=== PATIENT | male | born 1990 | race African-American/Black ===

== ENCOUNTER → 2021-03-18 14:13 | Outpatient (CLI) | payer OTHER, MEDICAID, SELFPAY ==
[2021-03-18 15:24] LABS: Add Manual Diff / Slide Review NO; Basophils Absolute Auto 0 /uL (0-100); Basophils Percent Auto 0.7 % (0-2); Eosinophils Absolute Auto 0 /uL (0-450); Eosinophils Percent Auto 0.9 % (2-4); Hematocrit 41.5 % (41-53); Hemoglobin 13.8 g/dL (13.5-17.5); Lymphocytes Absolute Auto 1400 /uL (1100-4500); Lymphocytes Percent Auto 33.2 % (25-40); Mean Corpuscular HGB Conc 33.3 % (30-36); Mean Corpuscular Hemoglobin 29.5 PG (26-34); Mean Corpuscular Volume 88.6 fL (80-100); Monocytes Absolute Auto 300 /uL (0-900); Monocytes Percent Auto 6.3 % (3-14); Neutrophils Absolute Auto 2500 /uL (1500-7000); Neutrophils Percent Auto 58.9 % (50-75); Platelet Count 199 X10^3/uL (150-400); Red Blood Cell Count 4.69 X10^6/uL (4.5-5.9); Red Cell Distribution Width 13.7 % (11.6-14.8); White Blood Cell Count 4.3 X10^3/uL (4.5-11.0)
[2021-03-18 15:48] LABS: Alanine Aminotransferase 37 IU/L (<50); Albumin 4.4 g/dL (3.5-5.0); Albumin Globulin Ratio 1.4 (1.0-2.8); Alkaline Phosphatase 79 U/L (38-126); Aspartate Aminotransferase 39 IU/L (17-59); BUN Creatinine Ratio 12.9 (6-22); Bilirubin Total 0.5 mg/dL (0.2-1.3); Blood Urea Nitrogen 18 mg/dL (9-20); Calcium 9.1 mg/dL (8.4-10.2); Carbon Dioxide 36 mmol/L (22-32); Chloride 103 mmol/L (98-107); Cholesterol 231 mg/dL (140-199); Estimated Glomerular Filt Rate > 60.0 mL/min (>60); Globulin 3.2 g/dL (1.7-4.1); Glucose 97 mg/dL (70-100); HDL Cholesterol 56 mg/dL (40-60); HEMOLYSIS < 15 (0-50); LDL Cholesterol Calculated 159 mg/dL (<100); Potassium 3.4 mmol/L (3.4-5.1); Sodium 141 mmol/L (137-145); Total Protein 7.6 g/dL (6.3-8.2); Triglycerides 80 mg/dL (35-150)
[2021-03-18 16:18] LABS: TSH w/ Reflex to FT4 0.87 uIU/mL (0.47-4.68)
[2021-03-18 16:38] LABS: Creatinine Urine Random 266.6 mg/dL
[2021-03-18 16:46] LABS: Microalbumi Creatinin Ratio Ur 62.2 ug/mg CR (<30); Microalbumin Urine Random 16.6 mg/dL (0-1.6)
== END ==
PROVIDERS: PCP Family Medicine; Referring Provider Family Medicine; Visit Provider Family Medicine
DX: I10 Essential (primary) hypertension (principal)
CPT/HCPCS: 36415; 80053; 80061; 82043; 82570; 84443; 85025

== ENCOUNTER → 2021-05-17 12:00 | Outpatient (CLI) | payer OTHER, MEDICAID, SELFPAY ==
--- NOTE | 2021-05-17 12:02 | DI.US.S_ITS ---
PROCEDURE: US RENAL COMPLETE INDICATIONS: HTN TECHNIQUE: Real-time scanning was performed of the kidneys and bladder, with image documentation. COMPARISON: None. FINDINGS: Kidneys: Kidneys are normal in size. Right kidney measures 10.1 cm long; left kidney measures 10.1 cm long. Right renal cortical thickness is 1.5 cm; left renal cortical thickness is 1.6 cm. Renal cortical echotexture is normal. No hydronephrosis or nephrolithiasis. No suspicious solid mass lesions. Bladder: Pre-void bladder volume is 231 mL. Post-void residual is 0 mL. Pre-void images demonstrate no intraluminal masses or stones. On pre-void images, neither ureteral jets are noted with color Doppler interrogation. (Of note, ureteral jets may not be detectable in up to 25% of cases due to insufficient differences in specific gravity between ureteral and bladder urine). Miscellaneous: No free pelvic fluid. IMPRESSION: Normal appearance of the kidneys bilaterally. Dictated by: Kei Gaona [facility] Interpreted: Brian Boland MD on 05/17/2021 at 14:32 Transcribed by: PONCHO on 05/17/2021 at 14:33 Approved by: Brian Boland M.D. on 05/17/2021 at 17:00
== END ==
PROVIDERS: PCP Family Medicine; Referring Provider Family Medicine; Visit Provider Family Medicine
DX: I10 Essential (primary) hypertension (principal)
CPT/HCPCS: 76770

== ENCOUNTER → 2021-05-28 15:51 | Outpatient (CLI) | payer OTHER, MEDICAID, SELFPAY ==
--- NOTE | 2021-05-28 15:52 | DI.ECHO.S_ITS ---
[place] [facility]---------+ [facility] +---------+ : : [address] : [address] : : : : [id number] : : : : Phone: [phone]---------+ Echocardiogram Report + + :Name: TYRON BONE Study Date: 05/28/2021 Height: 71 in : :[facility] ReadingLocation: Weight: 185 lb : : Gender: Male BSA: 2.0 m2 : :: 1990 Age: 30 yrs BP: 188/105 mmHg: :Reason For Study: RESISTANT HYPETENSION : :Ordering Physician: KENNEDI, : :NOEL Performed By: Adrienne Unger : :Referring: NOEL KOLB : + + Interpretation Summary 1) Normal left ventricular thickness, size, wall motion, and systolic function (EF 55-60%). 2) Upper normal right ventricular size with normal function. 3) No significant valvular abnormalities. 4) Significant hypertension present during the study (BP 188/105mmHg). 5) Compared to the Echo done 10/07/2016, no significant change. Procedure: A two-dimensional transthoracic echocardiogram with color flow and Doppler was performed. The study quality was technically adequate. Comparison is made with the echocardiogram of 10/07/2016. The patient was in sinus rhythm with heart rates between 70-80 bpm during the exam. Left Ventricle: The left ventricle is normal in size. There is mild concentric left ventricular hypertrophy. The ejection fraction is estimated to be 55-60%. Left ventricular systolic function appears normal without focal wall motion abnormalities. Diastolic parameters suggest a relaxation abnormality of the left ventricle, consistent with probable normal filling pressures. Right Ventricle: The right ventricle is at the upper limits of normal in size. The right ventricular systolic function is normal. Atria: The left atrium is moderately dilated. Right atrial size is normal. There is no Doppler evidence for an interatrial shunt. Mitral Valve: The mitral valve is normal in structure and function. There is trace mitral regurgitation. Aortic Valve: The aortic valve is trileaflet. The aortic valve opens well. There is no aortic valve stenosis. No aortic regurgitation is present. Tricuspid Valve: The tricuspid valve is normal in structure and function. No tricuspid regurgitation. Pulmonary artery pressures cannot be estimated because of the lack of a measurable TR jet velocity but the IVC suggests a CVP of around 3 mmHg. Pulmonic Valve: The pulmonic valve leaflets are thin and pliable; valve motion is normal. There is a trace or physiologic amount of pulmonic regurgitation. Great Vessels: The aortic root is normal size. The dimensions of the ascending aorta are normal. The IVC is of normal diameter and collapses greater than 50% with a sniff. This suggests a low right atrial pressure of 3 mm Hg. Pericardium/ Pleura There is no pericardial effusion. There is no pleural effusion. MMode/2D Measurements & Calculations LVIDd: 4.9 cm LVOT diam: 2.2 cm LVIDs: 3.4 cm Ao root diam: 3.2 cm FS: 31.2 % asc Aorta Diam: 3.1 cm IVSd: 1.2 cm Ao Arch Diam (Prox Trans): 2.8 cm LVPWd: 1.3 cm LV brown. diameter/BSA (cm/m^2): 2.4 LV sys. diameter/BSA (cm/m^2): 1.7 LA A2 area: 21.7 cm2 RA long axis: 5.1 cm LA A4 area: 22.0 cm2 RA area: 15.5 cm2 LA length (vol): 5.4 cm RA vol: 40.1 ml LA vol: 75.0 ml RA : 19.7 ml/m2 LA vol index: 36.8 ml/m2 IVC diam: 1.7 cm RVD1 (basal): 4.0 cm TAPSE: 2.6 cm Doppler Measurements & Calculations Ao V2 max: 126.2 cm/sec LVOT Max David: 103.8 cm/sec Ao V2 mean: 84.4 cm/sec LV V1 max P.3 mmHg Ao max P.4 mmHg LV V1 VTI: 18.6 cm Ao mean P.2 mmHg KEENAN(I,D): 3.0 cm2 Ao V2 VTI: 23.8 cm KEENAN(V,D): 3.2 cm2 sev ratio: 0.78 KEENAN indexed to BSA (cm^2/m^2): 1.5 MV E max david: 88.9 cm/sec PA V2 max: 98.4 cm/sec MV A max david: 96.5 cm/sec PA V2 mean: 74.0 cm/sec MV E/A: 0.92 PA mean P.4 mmHg Med Peak E' David: 6.7 cm/sec PA pr(Accel): 12.2 mmHg E/E' med: 13.2 Lat Peak E' David: 8.1 cm/sec E/E' lat: 10.9 E/e' average: 12.1 MV dec time: 0.20 sec SV(LVOT): 71.4 ml Reading Physician:05:50 PM
== END ==
PROVIDERS: PCP Family Medicine; Referring Provider Family Medicine; Visit Provider Family Medicine
DX: I10 Essential (primary) hypertension (principal)
CPT/HCPCS: 93306

== ENCOUNTER 2023-08-14 16:26 | Emergency (ER) | payer OTHER, MEDICAID, SELFPAY ==
[2023-08-14] VITALS (32 sets, daily range): BP systolic 124–262; BP diastolic 64–175; PULSE 73–88; RESP 13–25; TEMP 36.9; O2SAT 96–100; BMI 28.7
--- NOTE | 2023-08-14 17:08 | DI.RAD.S_ITS ---
PROCEDURE: XR CHEST 1V INDICATIONS: chest pain TECHNIQUE: One view of the chest was acquired. COMPARISON: None. FINDINGS: Surgical changes and devices: None. Lungs and pleura: Lungs are clear. No pleural effusions or pneumothorax. Mediastinum: Mediastinal contours appear normal. Heart size is enlarged. Bones and chest wall: No suspicious bony lesions. Overlying soft tissues appear unremarkable. IMPRESSION: No acute pulmonary process. Dictated by: Valentina Jacobsen M.D. on 08/14/2023 at 17:21 Approved by: Valentina Jacobsen M.D. on 08/14/2023 at 17:21
--- NOTE | 2023-08-14 17:23 | DI.CT.S_ITS ---
PROCEDURE: CT HEAD/BRAIN WO CON INDICATIONS: Blurry vision/hypertensive urgency TECHNIQUE: Noncontrast 4.5 mm thick angled axial sections acquired from the foramen magnum to the vertex, with coronal and sagittal reformats. For radiation dose reduction, the following was used: automated exposure control, adjustment of mA and/or kV according to patient size. COMPARISON: None. FINDINGS: Image quality: Diagnostic. CSF spaces: Basal cisterns are patent. No extra-axial fluid collections. Ventricles are normal in size and shape. Brain: No midline shift. No intracranial masses or hemorrhage. Payne-white matter interface is normal. Skull and face: Calvarium and visualized facial bones are intact, without suspicious lesions. Sinuses: Visualized sinuses and mastoids are clear. IMPRESSION: No acute intracranial pathology. Dictated by: Rehana Bourgeois M.D. on 08/14/2023 at 18:08 Approved by: Rehana Bourgeois M.D. on 08/14/2023 at 18:09
[2023-08-14 17:26] LABS: Alanine Aminotransferase 26 IU/L (<50); Albumin 4.2 g/dL (3.5-5.0); Albumin Globulin Ratio 1.3 (1.0-2.8); Alkaline Phosphatase 83 U/L (38-126); Aspartate Aminotransferase 32 IU/L (17-59); Calcium 8.6 mg/dL (8.4-10.2); Carbon Dioxide 24 mmol/L (22-32); Chloride 99 mmol/L (98-107); Creatine Kinase 435 U/L (55-170); Globulin 3.3 g/dL (1.7-4.1); Glucose 92 mg/dL (70-100); HEMOLYSIS < 15 (0-50); Lipase 167 U/L (23-300); Magnesium 2.5 mg/dL (1.6-2.3); Potassium 3.9 mmol/L (3.4-5.1); Sodium 136 mmol/L (137-145); Total Protein 7.5 g/dL (6.3-8.2)
--- NOTE | 2023-08-14 17:33 | ED.GENADULT ---
HPI - General Adult <Kyle Sprague MD - Last Filed: 09/02/23 08:04> General Chief complaint: Hypertension Stated complaint: High BP, Blurred vision right eye Time Seen by Provider: 08/14/23 17:13 Source: patient Mode of arrival: Ambulatory History of Present Illness HPI narrative: Patient here with mother. Complains of blurry vision on the right eye. Ongoing since 1:00 p.m. today. He awoke at 12 noon today define blurry vision in the right. Has had blurry vision through the past couple of days. No headache no chest pain no palpitations no numbness tingling weakness no slurred speech or facial droop. Patient has longstanding history of hypertension. Has been off and on blood pressure medication in the past 2 years. He was on amlodipine and losartan with primary care 2 years ago. He just restarted metoprolol, monotherapy, 25 mg daily. He took this at noon today. 25 mg. He states his blood pressure has been in the 200s in the past 1 year. This is not new. Related Data Previous Rx's Medication Instructions Recorded amlodipine 5 mg tablet 5 mg PO DAILY #90 tabs 07/30/21 losartan 100 1 tab PO DAILY #90 tabs 07/30/21 mg-hydrochlorothiazide 25 mg tablet Allergies Allergy/AdvReac Type Severity Reaction Status Date / Time No Known Drug Allergies Allergy Verified 03/20/21 14:08 Review of Systems <Kyle Sprague MD - Last Filed: 09/02/23 08:04> Review of Systems Narrative: GENERAL: negative chills, fatigue, malaise, fever, sweats. HEENT: negative sinus pain, ear pain, sore throat positive blurry vision RESPIRATORY: negative dyspnea, cough CARDIOVASCULAR: negative chest pain, palpitations GASTROINTESTINAL: negative nausea, vomiting, abdominal pain : negative dysuria, frequency, hematuria MUSCULOSKELETAL: negative muscle or bony pain SKIN: negative rash, skin lesions NEUROLOGIC: negative weakness, numbness ROS Unobtainable: All systems reviewed & are unremarkable except as noted in HPI and below Patient History <Kyle Sprague MD - Last Filed: 09/02/23 08:04> Medical History Hypertension (~2020) Social History Smoking Status: Never smoker Smoking Status: Never smoker alcohol intake frequency: 0-2 drinks per day Substance Use Type: does not use Exam <Kyle Sprague MD - Last Filed: 09/02/23 08:04> Narrative Exam Narrative: GENERAL: in no distress, not toxic not dyspneic HEAD: Normocephalic. EYES: Pupils equal round, EOMI, no papilledema photophobia ENT: Mucous membranes moist. NECK: Trachea midline. CARDIOVASCULAR: Regular rate and rhythm RESPIRATORY: Clear to auscultation. Breath sounds equal bilaterally. No wheezes, rales, or rhonchi. GASTROINTESTINAL: Abdomen soft, non-tender EXTREMITIES: No gross deformities. BACK: No flank tenderness. NEURO: AOx4. Clear speech no facial droop light touch intact bilateral face and hands. Strong equal whipper SKIN: Warm and dry PSYCH: Not anxious, is cooperative Initial Vital Signs Initial Vital Signs: Vital Signs Temperature 98.4 F 08/14/23 16:29 Pulse Rate 85 08/14/23 16:29 Respiratory Rate 20 08/14/23 16:29 Blood Pressure 262/169 H 08/14/23 16:29 Pulse Oximetry 100 08/14/23 16:29 Oxygen Delivery Method Room Air 08/14/23 16:29 <Aisha Alvarado MD - Last Filed: 08/15/23 04:17> Initial Vital Signs Initial Vital Signs: Vital Signs Temperature 98.4 F 08/14/23 16:29 Pulse Rate 85 08/14/23 16:29 Respiratory Rate 20 08/14/23 16:29 Blood Pressure 262/169 H 08/14/23 16:29 Pulse Oximetry 100 08/14/23 16:29 Oxygen Delivery Method Room Air 08/14/23 16:29 Course <Kyle Sprague MD - Last Filed: 09/02/23 08:04> Orders Ordered: Discontinued Medications Aspirin (Aspirin 81 Mg Chew Tab) 324 mg PO NOW ONE Stop: 08/14/23 17:09 Last Admin: 08/14/23 17:25 Dose: Not Given Documented By: LOS Nicardipine HCl 25 mg/ Sodium (Chloride) 250 mls @ 50 mls/hr IV TITRATE MARTA; Protocol Last Titration: 08/15/23 01:02 Dose: Infused Documented By: Titration: 08/14/23 23:36 Dose: 2.5 mg/hr, 25 mls/hr Documented By: Titration: 08/14/23 22:47 Dose: 0 mg/hr, 0 mls/hr Documented By: Titration: 08/14/23 21:53 Dose: 2.5 mg/hr, 25 mls/hr Documented By: Titration: 08/14/23 20:25 Dose: 0 mg/hr, 0 mls/hr Documented By: Titration: 08/14/23 20:14 Dose: 5 mg/hr, 50 mls/hr Documented By: Titration: 08/14/23 19:00 Dose: 7.5 mg/hr, 75 mls/hr Documented By: Admin: 08/14/23 18:45 Dose: 5 mg/hr, 50 mls/hr Documented By: LOS Metoprolol Tartrate (Metoprolol Ir 25 Mg Tablet) 50 mg PO NOW ONE Stop: 08/14/23 17:34 Last Admin: 08/14/23 17:40 Dose: 50 mg Documented By: LOS Vital Signs Vital signs: Vital Signs - 8 hr 08/14/23 20:15 08/14/23 20:15 08/14/23 20:30 Pulse Rate 80 80 Respiratory Rate 19 19 Blood Pressure 124/64 Pulse Oximetry 100 100 08/14/23 20:30 08/14/23 20:44 08/14/23 20:45 Pulse Rate 81 Respiratory Rate 18 Blood Pressure 138/76 150/85 H Pulse Oximetry 100 08/14/23 20:45 08/14/23 21:00 08/14/23 21:00 Pulse Rate 82 82 Respiratory Rate 17 18 Blood Pressure 155/89 H Pulse Oximetry 100 100 08/14/23 21:15 08/14/23 21:15 08/14/23 21:30 Pulse Rate 82 Respiratory Rate 17 Blood Pressure 159/91 H 164/95 H Pulse Oximetry 100 08/14/23 21:30 08/14/23 21:51 08/14/23 21:51 Pulse Rate 83 84 Respiratory Rate 21 Blood Pressure 177/111 H Pulse Oximetry 100 100 08/14/23 22:00 08/14/23 22:00 08/14/23 22:15 Pulse Rate 85 Respiratory Rate Blood Pressure 166/104 H 157/95 H Pulse Oximetry 100 08/14/23 22:15 08/14/23 22:30 08/14/23 22:30 Pulse Rate 84 85 Respiratory Rate Blood Pressure 157/92 H Pulse Oximetry 100 100 08/14/23 22:44 08/14/23 22:45 08/14/23 22:45 Pulse Rate 87 86 Respiratory Rate Blood Pressure 149/87 H Pulse Oximetry 100 100 08/14/23 23:00 08/14/23 23:00 08/14/23 23:15 Pulse Rate 85 Respiratory Rate Blood Pressure 161/90 H 161/92 H Pulse Oximetry 100 08/14/23 23:15 08/14/23 23:30 08/14/23 23:30 Pulse Rate 83 86 Respiratory Rate Blood Pressure 175/106 H Pulse Oximetry 100 99 08/14/23 23:45 08/14/23 23:45 08/15/23 00:00 Pulse Rate 88 Respiratory Rate Blood Pressure 169/103 H 160/98 H Pulse Oximetry 99 08/15/23 00:00 08/15/23 00:15 08/15/23 00:15 Pulse Rate 87 87 Respiratory Rate Blood Pressure 161/95 H Pulse Oximetry 99 99 08/15/23 00:30 08/15/23 00:30 08/15/23 00:45 Pulse Rate 88 Respiratory Rate Blood Pressure 163/93 H 163/93 H Pulse Oximetry 99 08/15/23 00:45 Pulse Rate 90 Respiratory Rate Blood Pressure Pulse Oximetry 99 <Aisha Alvarado MD - Last Filed: 08/15/23 04:17> Orders Ordered: Discontinued Medications Aspirin (Aspirin 81 Mg Chew Tab) 324 mg PO NOW ONE Stop: 08/14/23 17:09 Last Admin: 08/14/23 17:25 Dose: Not Given Documented By: LOS Nicardipine HCl 25 mg/ Sodium (Chloride) 250 mls @ 50 mls/hr IV TITRATE MARTA; Protocol Last Titration: 08/15/23 01:02 Dose: Infused Documented By: Titration: 08/14/23 23:36 Dose: 2.5 mg/hr, 25 mls/hr Documented By: Titration: 08/14/23 22:47 Dose: 0 mg/hr, 0 mls/hr Documented By: Titration: 08/14/23 21:53 Dose: 2.5 mg/hr, 25 mls/hr Documented By: Titration: 08/14/23 20:25 Dose: 0 mg/hr, 0 mls/hr Documented By: Titration: 08/14/23 20:14 Dose: 5 mg/hr, 50 mls/hr Documented By: Titration: 08/14/23 19:00 Dose: 7.5 mg/hr, 75 mls/hr Documented By: Admin: 08/14/23 18:45 Dose: 5 mg/hr, 50 mls/hr Documented By: LOS Metoprolol Tartrate (Metoprolol Ir 25 Mg Tablet) 50 mg PO NOW ONE Stop: 08/14/23 17:34 Last Admin: 08/14/23 17:40 Dose: 50 mg Documented By: LOS Vital Signs Vital signs: Vital Signs - 8 hr 08/14/23 20:15 08/14/23 20:15 08/14/23 20:30 Pulse Rate 80 80 Respiratory Rate 19 19 Blood Pressure 124/64 Pulse Oximetry 100 100 08/14/23 20:30 08/14/23 20:44 08/14/23 20:45 Pulse Rate 81 Respiratory Rate 18 Blood Pressure 138/76 150/85 H Pulse Oximetry 100 08/14/23 20:45 08/14/23 21:00 08/14/23 21:00 Pulse Rate 82 82 Respiratory Rate 17 18 Blood Pressure 155/89 H Pulse Oximetry 100 100 08/14/23 21:15 08/14/23 21:15 08/14/23 21:30 Pulse Rate 82 Respiratory Rate 17 Blood Pressure 159/91 H 164/95 H Pulse Oximetry 100 08/14/23 21:30 08/14/23 21:51 08/14/23 21:51 Pulse Rate 83 84 Respiratory Rate 21 Blood Pressure 177/111 H Pulse Oximetry 100 100 08/14/23 22:00 08/14/23 22:00 08/14/23 22:15 Pulse Rate 85 Respiratory Rate Blood Pressure 166/104 H 157/95 H Pulse Oximetry 100 08/14/23 22:15 08/14/23 22:30 08/14/23 22:30 Pulse Rate 84 85 Respiratory Rate Blood Pressure 157/92 H Pulse Oximetry 100 100 08/14/23 22:44 08/14/23 22:45 08/14/23 22:45 Pulse Rate 87 86 Respiratory Rate Blood Pressure 149/87 H Pulse Oximetry 100 100 08/14/23 23:00 08/14/23 23:00 08/14/23 23:15 Pulse Rate 85 Respiratory Rate Blood Pressure 161/90 H 161/92 H Pulse Oximetry 100 08/14/23 23:15 08/14/23 23:30 08/14/23 23:30 Pulse Rate 83 86 Respiratory Rate Blood Pressure 175/106 H Pulse Oximetry 100 99 08/14/23 23:45 08/14/23 23:45 08/15/23 00:00 Pulse Rate 88 Respiratory Rate Blood Pressure 169/103 H 160/98 H Pulse Oximetry 99 08/15/23 00:00 08/15/23 00:15 08/15/23 00:15 Pulse Rate 87 87 Respiratory Rate Blood Pressure 161/95 H Pulse Oximetry 99 99 08/15/23 00:30 08/15/23 00:30 08/15/23 00:45 Pulse Rate 88 Respiratory Rate Blood Pressure 163/93 H 163/93 H Pulse Oximetry 99 08/15/23 00:45 Pulse Rate 90 Respiratory Rate Blood Pressure Pulse Oximetry 99 Medical Decision Making <Kyle Sprague MD - Last Filed: 09/02/23 08:04> Lab Data 08/14/23 16:55 08/14/23 16:55 Labs: Lab Results 08/14/23 08/14/23 Range/Units 16:55 20:20 WBC 7.6 (4.5-11.0) X10^3/uL RBC 2.96 L (4.5-5.9) X10^6/uL Hgb 9.3 L (13.5-17.5) g/dL Hct 26.7 L (41-53) % MCV 90.4 (80-100) fL MCH 31.3 (26-34) PG MCHC 34.6 (30-36) % RDW 15.8 H (11.6-14.8) % Plt Count 72 L (150-400) X10^3/uL Neut % (Auto) 76.0 H (50-75) % Lymph % (Auto) 12.6 L (25-40) % [place] % (Auto) 7.3 (3-14) % Eos % (Auto) 3.2 (2-4) % Baso % (Auto) 0.9 (0-2) % Neut # (Auto) 5800 (7578-7185) /uL Lymph # (Auto) 1000 L (5779-8198) /uL [place] # (Auto) 600 (0-900) /uL Eos # (Auto) 200 (0-450) /uL Baso # (Auto) 100 (0-100) /uL RBC Morphology See below Hypochromasia 1+ H Anisocytosis 2+ H Microcytosis 1+ H Macrocytosis 1+ H Target Cells 1+ H Ovalocytes 1+ H Rouleaux 1+ H Schistocytes 1+ H PT 12.3 (9.4-12.5) SECONDS INR 1.1 (0.9-1.3) APTT 40 H (25.1-36.5) SECONDS Sodium 136 L (137-145) mmol/L Potassium 3.9 (3.4-5.1) mmol/L Chloride 99 (98-107) mmol/L Carbon Dioxide 24 (22-32) mmol/L BUN 110 H* (9-20) mg/dL Creatinine 11.14 H* (0.66-1.25) mg/dL Estimated GFR 6 L (>60) mL/min BUN/Creatinine Ratio 9.9 (6-22) Glucose 92 (70-100) mg/dL Calcium 8.6 (8.4-10.2) mg/dL Magnesium 2.5 H (1.6-2.3) mg/dL Total Bilirubin 1.0 (0.2-1.3) mg/dL AST 32 (17-59) IU/L ALT 26 (<50) IU/L Alkaline Phosphatase 83 (38-126) U/L Total Creatine Kinase 435 H (55-170) U/L Troponin I 0.066 H 0.075 H (0.01-0.034) ng/mL Total Protein 7.5 (6.3-8.2) g/dL Albumin 4.2 (3.5-5.0) g/dL Globulin 3.3 (1.7-4.1) g/dL Albumin/Globulin Ratio 1.3 (1.0-2.8) Lipase 167 (23-300) U/L Imaging Data Chest x-ray: Radiologist's Impression: [address] [address] XRay Report Signed Patient: Roge Ely MR#: [id number] : 1990 Acct:[id number] Age/Sex: 32 / M Date of Service: 08/14/23 Loc: ED Accession Number: [id number] Procedure: XR chest 1V Ordering Provider: Kyle Sprague MD PROCEDURE: XR CHEST 1V INDICATIONS: chest pain TECHNIQUE: One view of the chest was acquired. COMPARISON: None. FINDINGS: Surgical changes and devices: None. Lungs and pleura: Lungs are clear. No pleural effusions or pneumothorax. Mediastinum: Mediastinal contours appear normal. Heart size is enlarged. Bones and chest wall: No suspicious bony lesions. Overlying soft tissues appear unremarkable. IMPRESSION: No acute pulmonary process. Dictated by: Valentina Jacobsen M.D. on 08/14/2023 at 17:21 Approved by: Valentina Jacobsen M.D. on 08/14/2023 at 17:21 [facility] Narrative Medical decision making narrative: Patient here with mother. Complains of blurry vision on the right eye. Ongoing since 1:00 p.m. today. He awoke at 12 noon today define blurry vision in the right. Has had blurry vision through the past couple of days. No headache no chest pain no palpitations no numbness tingling weakness no slurred speech or facial droop. Patient has longstanding history of hypertension. Has been off and on blood pressure medication in the past 2 years. He was on amlodipine and losartan with primary care 2 years ago. He just restarted metoprolol, monotherapy, 25 mg daily. He took this at noon today. 25 mg. He states his blood pressure has been in the 200s in the past 1 year. This is not new. After history and exam CBC CMP EKG CT head metoprolol MDM CC: High blood pressure/blurry vision Complicating co-morbidities: Hypertension Data collected from: Patient and mother Medical records reviewed: Office records from July 30, 2021, echocardiogram from 2020 Differential considered: Includes but not limited to hypertensive urgency/emergency Exam documented above, pertinent findings include: Fast exam is negative Lab Test results independently reviewed as above. Pertinent findings: WBC 7.6 hemoglobin 9.3 sodium 136 potassium 3.9 BUN 110 creatinine 11.14 GFR 6 Troponin 0.066 likely due to renal clearance. Patient has no chest pain. Independently reviewed EKG Imaging studies independently reviewed: Chest x-ray no acute finding, CT head Consultations: 5:[address] Blas, hospitalist, would slowly lower patient's blood pressure by 25% or 30%. Based on map. Patient can receive at this time 50 mg metoprolol tartrate. Observe for 1 or 2 hours to see response. Treatments: Re-evaluations: Discussion: Diagnosis: Hypertensive emergency August 14, 2023 at 6:00 p.m.. Brennick: Sign out to Dr Alvarado, patient will likely need to be transferred out given hypertensive emergency with renal function noted. <Aisha Alvarado MD - Last Filed: 08/15/23 04:17> Lab Data Labs: Lab Results 08/14/23 08/14/23 Range/Units 16:55 20:20 WBC 7.6 (4.5-11.0) X10^3/uL RBC 2.96 L (4.5-5.9) X10^6/uL Hgb 9.3 L (13.5-17.5) g/dL Hct 26.7 L (41-53) % MCV 90.4 (80-100) fL MCH 31.3 (26-34) PG MCHC 34.6 (30-36) % RDW 15.8 H (11.6-14.8) % Plt Count 72 L (150-400) X10^3/uL Neut % (Auto) 76.0 H (50-75) % Lymph % (Auto) 12.6 L (25-40) % [place] % (Auto) 7.3 (3-14) % Eos % (Auto) 3.2 (2-4) % Baso % (Auto) 0.9 (0-2) % Neut # (Auto) 5800 (5373-3643) /uL Lymph # (Auto) 1000 L (9697-6663) /uL [place] # (Auto) 600 (0-900) /uL Eos # (Auto) 200 (0-450) /uL Baso # (Auto) 100 (0-100) /uL RBC Morphology See below Hypochromasia 1+ H Anisocytosis 2+ H Microcytosis 1+ H Macrocytosis 1+ H Target Cells 1+ H Ovalocytes 1+ H Rouleaux 1+ H Schistocytes 1+ H PT 12.3 (9.4-12.5) SECONDS INR 1.1 (0.9-1.3) APTT 40 H (25.1-36.5) SECONDS Sodium 136 L (137-145) mmol/L Potassium 3.9 (3.4-5.1) mmol/L Chloride 99 (98-107) mmol/L Carbon Dioxide 24 (22-32) mmol/L BUN 110 H* (9-20) mg/dL Creatinine 11.14 H* (0.66-1.25) mg/dL Estimated GFR 6 L (>60) mL/min BUN/Creatinine Ratio 9.9 (6-22) Glucose 92 (70-100) mg/dL Calcium 8.6 (8.4-10.2) mg/dL Magnesium 2.5 H (1.6-2.3) mg/dL Total Bilirubin 1.0 (0.2-1.3) mg/dL AST 32 (17-59) IU/L ALT 26 (<50) IU/L Alkaline Phosphatase 83 (38-126) U/L Total Creatine Kinase 435 H (55-170) U/L Troponin I 0.066 H 0.075 H (0.01-0.034) ng/mL Total Protein 7.5 (6.3-8.2) g/dL Albumin 4.2 (3.5-5.0) g/dL Globulin 3.3 (1.7-4.1) g/dL Albumin/Globulin Ratio 1.3 (1.0-2.8) Lipase 167 (23-300) U/L Imaging Data CT scan - head: Radiologist's Impression: PROCEDURE: CT HEAD/BRAIN WO CON INDICATIONS: Blurry vision/hypertensive urgency TECHNIQUE: Noncontrast 4.5 mm thick angled axial sections acquired from the foramen magnum to the vertex, with coronal and sagittal reformats. For radiation dose reduction, the following was used: automated exposure control, adjustment of mA and/or kV according to patient size. COMPARISON: None. FINDINGS: Image quality: Diagnostic. CSF spaces: Basal cisterns are patent. No extra-axial fluid collections. Ventricles are normal in size and shape. Brain: No midline shift. No intracranial masses or hemorrhage. Payne-white matter interface is normal. Skull and face: Calvarium and visualized facial bones are intact, without suspicious lesions. Sinuses: Visualized sinuses and mastoids are clear. IMPRESSION: No acute intracranial pathology. Dictated by: Rehana Bourgeois M.D. on 08/14/2023 at 18:08 [facility] Narrative Medical decision making narrative: Patient here with mother. Complains of blurry vision on the right eye. Ongoing since 1:00 p.m. today. He awoke at 12 noon today define blurry vision in the right. Has had blurry vision through the past couple of days. No headache no chest pain no palpitations no numbness tingling weakness no slurred speech or facial droop. Patient has longstanding history of hypertension. Has been off and on blood pressure medication in the past 2 years. He was on amlodipine and losartan with primary care 2 years ago. He just restarted metoprolol, monotherapy, 25 mg daily. He took this at noon today. 25 mg. He states his blood pressure has been in the 200s in the past 1 year. This is not new. After history and exam CBC CMP EKG CT head metoprolol [facility] CC: High blood pressure/blurry vision Complicating co-morbidities: Hypertension Data collected from: Patient and mother Medical records reviewed: Office records from July 30, 2021, echocardiogram from 2020 Differential considered: Includes but not limited to hypertensive urgency/emergency, stroke, ACS Exam documented above, pertinent findings include: Fast exam is negative Lab Test results independently reviewed as above. Pertinent findings: CBC with significant anemia at 9.3 and 26.7 and low platelets at 72. White count is normal. Concern for bone marrow dysfunction Chemistries are notable for creatinine at 11.14. Sodium 136, potassium 3.9, chloride 99, carbon dioxide 24. No liver abnormalities. Magnesium minimally elevated at 2.5 Independently reviewed EKG: EKG shows left ventricular hypertrophy J-point elevation, questioned lateral ischemia. QTC is prolonged at 478 Imaging studies independently reviewed: Chest x-ray no acute finding CT head shows no acute findings Consultations: 5:[address] Blas, hospitalist, would slowly lower patient's blood pressure by 25% or 30%. Based on map. Patient can receive at this time 50 mg metoprolol tartrate. Observe for 1 or 2 hours to see response. Diagnosis: Hypertensive emergency August 14, 2023 at 6:00 p.m.. Celestine: Sign out to Dr Alvarado, patient will likely need to be transferred out given hypertensive emergency with renal function noted. 6:15pm Dr Alvarado. Care is assumed, patient is independently evaluated, imaging studies and lab tests are reviewed. Findings and concerns for hypertensive crisis with acute renal failure are reviewed with the patient and his parents with explanation for IV blood pressure management and need for transfer. Discussion by problem: 1: Hypertensive crisis with possibility of PRES syndrome give the acute visual changes Nicardipine gtt - goal 160 Systolic 820 pm: blood pressure has dropped down to 127/68 and nicardipine is being held and then will restart at 2.5 mg. Goal is 160 systolic. Patient is reexamined at this time and has no change to his visual complaints, still blurring in the right eye but no headache. No other complaints are noted. He is updated on bed requests 2: Acute renal failure: Creatinine is 11.14, BUN is 110. Sodium is 136, potassium 3.9 GFR is estimated at 6. Creatinine was 1.4 in February of 2021. Patient does not note a change to overall urine output. With normal potassium levels he does not need emergent dialysis tonight 3: Anemia with thrombocytopenia, concern for bone marrow suppression 4: Elevated troponin may be secondary to poor clearance given the acute renal failure but acute coronary syndrome remains within the differential. Left ventricular hypertrophy with question of ischemic changes and prolonged QT on EKG. 5: Hypertension secondary causes workup in the past include: - renal ultrasound April of 2021 shows Kidneys are normal in size. Right kidney measures 10.1 cm long; left kidney measures 10.1 cm long. Right renal cortical thickness is 1.5 cm; left renal cortical thickness is 1.6 cm. Renal cortical echotexture is normal. -echocardiogram 04/2021 Interpretation Summary 1) Normal left ventricular thickness, size, wall motion, and systolic function(EF 55-60%). 2) Upper normal right ventricular size with normal function. 3) No significant valvular abnormalities. 4) Significant hypertension present during the study (BP 188/105mmHg). 5) Compared to the Echo done 10/07/2016, no significant change. He has not had prior chest x-rays, abdominal CT scanning nor renal artery evaluation 6. Transfer and bed availability in a facility capable of inpatient dialysis, cardiology and nephrology consultation. special education secretary will begin making phone calls 820pm care reviewed with transfer nurse [facility] 10pm Discussed with Relations Director, [facility] in [place]. Dr. Valdez Montenegro. Accepts admission. Transfer center will call back when bed is available. Family is notified of anticipated transfer later this evening. We will need ALS transport Critical Care Time <Aisha Alvarado MD - Last Filed: 08/15/23 04:17> Critical Care Time Critical Care Time: Yes Total Critical Care Time: 48 Attestation: Critical care time is separate from other billable procedures. There is a high probability of a significant, sudden or life-threatening deterioration that requires my full and direct attention, intervention and personal management. This critical care time includes consultation with family and other consulting doctors, review of records, and interpretation of data from labs, EKGs and imaging as well as managements of hypertensive crisis with parenteral blood pressure control and acute neurologic findings Discharge Plan Departure Patient Disposition: [facility] Clinical Impression: Hypertensive crisis, Acute renal failure, Alteration in vision Prescriptions: No Action amlodipine 5 mg tablet 5 mg PO DAILY Qty: 90 3RF losartan-hydrochlorothiazide 100-25 mg tablet 1 tab PO DAILY Qty: 90 3RF Referrals: Phill Neal MD [Primary Care Provider] -
[2023-08-14 17:37] LABS: Troponin I 0.066 ng/mL (0.01-0.034)
[2023-08-14 17:40] LABS: BUN Creatinine Ratio 9.9 (6-22); Basophils Absolute Auto 100 /uL (0-100); Basophils Percent Auto 0.9 % (0-2); Eosinophils Absolute Auto 200 /uL (0-450); Eosinophils Percent Auto 3.2 % (2-4); Estimated Glomerular Filt Rate 6 mL/min (>60); Hematocrit 26.7 % (41-53); Hemoglobin 9.3 g/dL (13.5-17.5); Lymphocytes Absolute Auto 1000 /uL (1100-4500); Lymphocytes Percent Auto 12.6 % (25-40); Mean Corpuscular HGB Conc 34.6 % (30-36); Mean Corpuscular Hemoglobin 31.3 PG (26-34); Mean Corpuscular Volume 90.4 fL (80-100); Monocytes Absolute Auto 600 /uL (0-900); Monocytes Percent Auto 7.3 % (3-14); Neutrophils Absolute Auto 5800 /uL (1500-7000); Platelet Count 72 X10^3/uL (150-400); Red Blood Cell Count 2.96 X10^6/uL (4.5-5.9); Red Cell Distribution Width 15.8 % (11.6-14.8); White Blood Cell Count 7.6 X10^3/uL (4.5-11.0)
[2023-08-14] MEDS: METOPROLOL IR 25 MG TABLET 50 MG PO (17:40)
[2023-08-14 17:41] LABS: Add Manual Diff / Slide Review SLIDE REVIEW; Blood Urea Nitrogen 110 mg/dL (9-20)
[2023-08-14 17:49] LABS: INR 1.1 (0.9-1.3); Prothrombin Time 12.3 SECONDS (9.4-12.5)
[2023-08-14 17:52] LABS: PTT Partial Thromboplastin Tim 40 SECONDS (25.1-36.5)
[2023-08-14 17:59] LABS: Anisocytosis 2+; Macrocytosis 1+; Microcytosis 1+
[2023-08-14 18:00] LABS: Hypochromasia 1+; Ovalocytes 1+; Rouleaux 1+; Schistocytes 1+; Target Cells 1+
[2023-08-14] MEDS: NICARDIPINE 25 MG in SODIUM CHLORIDE 0.9% 240 ML 50 MG IV (18:45)
--- NOTE | 2023-08-14 18:51 | PC.NURSE ---
provider aware of all VS, cardene drip started per orders, see emar. call light in reach. family at bedside
--- NOTE | 2023-08-14 19:11 | PC.NURSE ---
Addendum entered by Cassy Jonas CNA 08/14/23 21:06: does not have ICU beds at this time. Addendum entered by Cassy Jonas CNA 08/14/23 20:29: 2000 [facility] were at capacity and not accepting transfers at this time. Addendum entered by Cassy Jonas CNA 08/14/23 19:48: 1930 Jessica Rao spoke with Josue, he said they would look at our case after finishing another transfer. - Original Note: Hospital Call list for patient transfer. Needing ICU and dialysis capabilities. 1906- [facility], spoke to Laine, patient is on wait list 1915- [facility], spoke with Mathieu, stated to call back after making other hospital calls
[2023-08-14 20:52] LABS: Troponin I 0.075 ng/mL (0.01-0.034)
[2023-08-15] VITALS: BP 160/98; PULSE 87; O2SAT 99
[2023-08-15 00:15] VITALS: BP 161/95; PULSE 87; O2SAT 99
[2023-08-15 00:30] VITALS: BP 163/93; PULSE 88; O2SAT 99
[2023-08-15 00:45] VITALS: BP 163/93; PULSE 90; O2SAT 99
== END 2023-08-15 01:15 | disposition short-term general hospital (02) ==
PROVIDERS: Emergency Medicine; Emergency Provider Emergency Medicine; PCP Family Medicine
DX: I16.9 Hypertensive crisis, unspecified (principal); N17.9 Acute kidney failure, unspecified; D64.9 Anemia, unspecified; H53.8 Other visual disturbances; D69.6 Thrombocytopenia, unspecified; R79.89 Other specified abnormal findings of blood chemistry; I10 Essential (primary) hypertension
CPT/HCPCS: 36415; 70450; 71045; 80053; 82550; 83690; 83735; 84484; 85025; 85610; 85730; 93005; 93010; 96365; 96366; 99284; 99291